=== PATIENT | male | born 1995 | race Caucasian/White ===

== ENCOUNTER 2022-04-24 18:48 | Emergency (ER) | payer OTHER, SELFPAY ==
[2022-04-24 20:07] VITALS: BP 150/92; PULSE 80; RESP 16; TEMP 36.2; O2SAT 98; BMI 25.7
[2022-04-24 21:46] LABS: Appearance Urine CLEAR; Color Urine YELLOW; Glucose Urine UA NEG (NEG); Leukocyte Esterase Urine NEG (NEG); Nitrite Urine NEG (NEG); Specific Gravity - Urine <= 1.005 (1.005-1.025); Urine Blood NEG (NEG); Urine Ketones NEG (NEG); Urine Protein NEG (NEG-TRACE)
--- NOTE | 2022-04-25 01:08 | ED_ITS ---
HPI - Abdominal Pain General Chief Complaint: Abdominal Pain Stated Complaint: hernia Time Seen by Provider: 04/25/22 01:07 Source: patient Mode of arrival: ambulatory Limitations: no limitations History of Present Illness HPI narrative: Patient with hx of right inguinal hernia for years does lifting at work comes here for increased pain and swelling for last 4 days no nausea no vomiting able to reduce the hernia pain got worse after coughing bout few days ago Related Data Allergies Allergy/AdvReac Type Severity Reaction Status Date / Time No Known Allergies Allergy Verified 04/24/22 21:28 Review of Systems Review of Systems Yes all other systems are reviewed and are negative [facility] Social History Social History Alcohol intake: current Alcohol intake frequency: holidays/special occasions only Patient Tobacco Use Status: Never used Tobacco Use of substances other than those prescribed or required for medical reasons: No Advance Directives: No Physical Exam ED Vital Signs: Vital Signs - 24 hr 04/24/22 20:07 04/25/22 01:16 Temperature 97.2 F Pulse Rate 80 73 Respiratory Rate 16 14 Blood Pressure 150/92 H 141/96 H Pulse Oximetry 98 Oxygen Delivery Method Room Air Room Air BMI result Body Mass Index 25.7 Const General: comfortable, no acute distress and well developed Male genitals images: 1. right direct inguinal hernia MDM - Abdominal Pain MDM Narrative Medical decision making narrative: Patient with reducible direct inguinal hernia no testicle tenderness patient advised to follow with surgeon Lab Data Labs: Lab Results 04/24/22 Range/Units 21:30 Urine Color YELLOW Urine Appearance CLEAR Urine pH 6.0 (5.0-8.0) Ur Specific [place] <= 1.005 (1.005-1.025) Urine Protein NEG (NEG-TRACE) MG/DL Urine Glucose (UA) NEG (NEG) MG/DL Urine Ketones NEG (NEG) MG/DL Urine Blood NEG (NEG) Urine Nitrite NEG (NEG) Ur Leukocyte Esterase NEG (NEG) Discharge Plan Discharge Clinical Impression: Inguinal hernia of right side without obstruction or gangrene Patient Disposition: Home, Self-Care Instructions: Inguinal Hernia (ED) Additional Instructions: Follow-up with Dr. wall for further evaluation and care for the hernia Avoid straining Report to the ER if increase in the pain Referrals: Tarik Wall MD [Physician] - 1 week Interventions: ED Discharge Assessment Last Done: 04/25/22 01:24 Discharge Date/Time: 04/25/22 01:24
[2022-04-25 01:16] VITALS: BP 141/96; PULSE 73; RESP 14
== END 2022-04-25 01:24 | disposition home or self-care (01) ==
LOC: HO.ED 04-25 01:25
PROVIDERS: Emergency Provider Internal Medicine; PCP Internal Medicine
DX: K40.90 Unilateral inguinal hernia, without obstruction or gangrene, not specified as recurrent (principal)
CPT/HCPCS: 81003; 99282; 99284